=== PATIENT | male | born 1955 | race Caucasian/White ===

== ENCOUNTER 2018-03-16 08:25 | Observation (INO) | payer MEDICARE, MEDICAID ==
[~2018-03-16] VITALS: Ht 188 cm; Wt 115.7 kg
[~2018-03-16 08:25] MED LIST: ACET650S21 PEG; ALBU0.63 NEB; AMLO2.5T PO; AMLO2.5T2 PEG; ASPI325T80 PEG; ATOR40TA PEG; BUPR100T8 PO; DOCU-131 PEG; FOLI-17 PEG; FURO-92 PEG; HEPA500024 SQ; HYDR-3341 PEG; HYDR25TA6 PO; LISI-170 PO; LISI10TA PEG; METO50TA82 PO; MULT9LIQ9 PEG; PANT40TA5 PEG; POTA20LI PEG; RISP1TAB45 PO; SCOP1PAT11 TD; THIA100T10 PEG
[2018-03-16 09:37] LABS: BASOPHILS # (AUTO) 0.02 x10^3/uL (0-0.1); BASOPHILS % (AUTO) 0 % (0-1); EOSINOPHILS # (AUTO) 0.09 x10^3/uL (0-0.4); EOSINOPHILS % (AUTO) 1 % (1-7); LYMPHOCYTES # (AUTO) 1.06 x10^3/uL (1-3.4); LYMPHOCYTES % (AUTO) 10 % (22-44); MD NO; MEAN CORPUSCULAR HGB CONC 33.6 g/dL (33.2-36.2); MEAN CORPUSCULAR VOLUME 89.1 fL (81-97); MEAN PLATELET VOLUME 8.3 fL (7.4-10.4); MONOCYTES # (AUTO) 0.62 x10^3/uL (0.2-0.8); MONOCYTES % (AUTO) 6 % (2-9); NEUTROPHILS # (AUTO) 8.58 x10^3/uL (1.8-6.8); NEUTROPHILS % (AUTO) 83 % (42-75); PLATELET COUNT 295 x10^3/uL (130-400); RED BLOOD COUNT 4.68 x10^6/uL (4.38-5.82); RED CELL DISTRIBUTION WIDTH 15.2 % (9.4-14.8)
[2018-03-16 09:40] LABS: ALBUMIN 3.2 g/dL (3.4-5.0); ANION GAP 6 mmol/L (5-15); CALCIUM 8.8 mg/dL (8.5-10.1); CHLORIDE 104 mmol/L (98-107)
[2018-03-16 09:41] LABS: SALICYLATE LEVEL < 1.7 mg/dL (2.8-20.0)
[2018-03-16 09:42] LABS: CREATININE 1.17 mg/dL (0.7-1.3)
[2018-03-16 09:43] LABS: ACETAMINOPHEN < 2 mcg/mL (10-30)
[2018-03-16 11:00] LABS: AMPHETAMINE SCREEN, URINE Negative (Negative); BARBITURATE SCREEN, URINE Negative (Negative); BENZODIAZEPINE SCREEN, URINE Negative (Negative); CANNABINOID SCREEN, URINE Negative (Negative); COCAINE SCREEN, URINE Negative (Negative); METHADONE SCREEN, URINE Negative (Negative); OPIATE SCREEN, URINE Negative (Negative)
[2018-03-16] MEDS ORDERED: ACETAMINOPHEN 325 MG TABLET PO PRN (12:30)
[2018-03-16] MEDS ORDERED: HALOPERIDOL 5 MG TABLET PO PRN (12:30)
[2018-03-16] MEDS ORDERED: ONDANSETRON ODT 4 MG PO PRN (12:30)
[2018-03-16] MEDS ORDERED: CARVEDILOL 3.125 MG TABLET ONE (17:48)
[2018-03-16] MEDS: CARVEDILOL 6.25 MG TABLET PO SCH (18:00)
[2018-03-16] MEDS ORDERED: HALOPERIDOL 5 MG TABLET ONE (20:24)
[2018-03-16 21:33] VITALS: BP 146/80
[2018-03-17 00:18] VITALS: BP 138/78
[2018-03-17 04:02] VITALS: BP 164/110
[2018-03-17] MEDS ORDERED: CARVEDILOL 12.5 MG TABLET ONE (04:15)
[2018-03-17] MEDS ORDERED: CARVEDILOL 6.25 MG TABLET PO ONE (04:30)
[2018-03-17] MEDS: CARVEDILOL 6.25 MG TABLET PO SCH (06:59)
[2018-03-17 08:01] VITALS: BP 161/98
[2018-03-17] MEDS ORDERED: LISINOPRIL 20 MG TABLET PO SCH (09:00)
[2018-03-17 13:42] VITALS: BP 131/76
== END 2018-03-17 15:41 ==
LOC: ED 09:34 → EDIP 10:36 → 2N 21:26
PROVIDERS: ADMIT Internal Medicine; ATTEND Internal Medicine
DX: R45.851 Suicidal ideations (principal); I11.0 Hypertensive heart disease with heart failure; I50.9 Heart failure, unspecified; I48.0 Paroxysmal atrial fibrillation; F32.9 Major depressive disorder, single episode, unspecified; F20.9 Schizophrenia, unspecified; Z59.9 Problem related to housing and economic circumstances, unspecified; Z91.5 Personal history of self-harm; E66.9 Obesity, unspecified
CPT/HCPCS: 36415; 80048; 80307; 80329; 82040; 85025; 93306; 99285; G0378; G0480

== ENCOUNTER 2018-07-24 14:11 | Emergency (ER) | payer MEDICAID ==
[~2018-07-24] VITALS: Ht 175.3 cm; Wt 118.0 kg
[~2018-07-24 14:11] MED LIST changes: -AMLO2.5T PO; +AMLO2.5T3 PO
[2018-07-24 15:34] VITALS: BP 128/69
== END 2018-07-24 15:52 | disposition home or self-care (01) ==
LOC: ED 15:50
DX: M25.571 Pain in right ankle and joints of right foot (principal); I48.91 Unspecified atrial fibrillation; I50.9 Heart failure, unspecified; F20.9 Schizophrenia, unspecified; F32.9 Major depressive disorder, single episode, unspecified; Z59.0 Homelessness
CPT/HCPCS: 99283